=== PATIENT | female | born 1950 | race Caucasian/White ===

== ENCOUNTER 2024-11-24 06:20 | Day surgery (SDC) | payer MEDICARE, SELFPAY ==
[2024-11-24 07:10] LABS: Glucose - Point of Care 156 mg/dl (70-99)
== END 2024-11-24 09:07 | disposition home or self-care (01) ==
LOC: GI 06:20
PROVIDERS: ATTENDING PHYSICIAN Internal Medicine Gastroenterology
DX: Z12.11 Encounter for screening for malignant neoplasm of colon (principal); K64.9 Unspecified hemorrhoids; K57.30 Diverticulosis of large intestine without perforation or abscess without bleeding; K51.40 Inflammatory polyps of colon without complications; D12.2 Benign neoplasm of ascending colon; Z86.0100 Personal history of colon polyps, unspecified
CPT/HCPCS: 45385; 45380; 82962; 88305